=== PATIENT | female | born 1935 | race Caucasian/White ===

== ENCOUNTER 2024-10-14 11:15 | Inpatient (IN) | payer MEDICARE ==
[~2024-10-14] VITALS: Ht 149.9 cm; Wt 43.1 kg
[2024-10-14 11:18] VITALS: BP 148/66; TEMP 98.2
[2024-10-14 11:40] VITALS: BP 148/66; TEMP 98.2
[2024-10-14 14:45] VITALS: BP 158/58; TEMP 98; O2SAT 99
[2024-10-14] MEDS ORDERED: REMEDY ESSENTIAL ZINC PASTE 113 GM TOP PRN (15:30)
[2024-10-14] MEDS ORDERED: MAGN400O6 PO (15:54)
[2024-10-14] MEDS ORDERED: PANT40TA2 PO ×2 (15:54→16:01)
[2024-10-14] MEDS ORDERED: ENOX40DI SUBCUT (15:54)
[2024-10-14] MEDS ORDERED: PREG50CA PO (15:54)
[2024-10-14] MEDS ORDERED: METH100V6 PO (15:54)
[2024-10-14] MEDS ORDERED: ACET325C7 PO (15:54)
[2024-10-14] MEDS ORDERED: HYDR-3974 PO (15:54)
[2024-10-14] MEDS ORDERED: PANT20TA2 PO (15:54)
[2024-10-14] MEDS ORDERED: ZOLP5TAB2 PO (15:56)
[2024-10-14] MEDS ORDERED: ESCI-9 PO (16:01)
[2024-10-14] MEDS ORDERED: METO-356 PO (16:01)
[2024-10-14] MEDS ORDERED: ROSU20TA2 PO (16:01)
[2024-10-14] MEDS: ESCITALOPRAM OXALATE 10 MG TABLET PO SCH (16:15)
[2024-10-14] MEDS: HYDROCODONE/APAP 10-325 MG TABLET PO PRN (17:18)
[2024-10-14] MEDS: METOPROLOL SUCCINATE XL 25 MG TAB.SR.24H PO SCH (17:18)
[2024-10-14] MEDS: METHOCARBAMOL 500 MG TABLET PO SCH (17:19)
[2024-10-14] MEDS: PREGABALIN 25 MG CAPSULE PO SCH (17:50)
[2024-10-14] MEDS: ENOXAPARIN SODIUM 30 MG/0.3 ML DISP.SYRIN SQ SCH (20:36)
[2024-10-14] MEDS: ZOLPIDEM 5 MG TABLET PO PRN (20:37)
[2024-10-14 21:20] VITALS: BP 165/59; TEMP 98.2; O2SAT 95
[2024-10-15] MEDS: PANTOPRAZOLE SODIUM 40 MG TABLET.DR PO SCH (06:06)
[2024-10-15 06:57] VITALS: BP 159/64; TEMP 97.8
[2024-10-15] MEDS: ATORVASTATIN 40 MG TABLET PO SCH (08:55)
[2024-10-15 09:09] VITALS: BP 147/42; TEMP 97.8; O2SAT 95
[2024-10-15] MEDS ORDERED: MORP2SYR7 IV (10:54)
[2024-10-15] MEDS ORDERED: ONDA4SYR IV (10:55)
[2024-10-15] MEDS ORDERED: PETR113P TP (10:56)
[2024-10-15] MEDS ORDERED: LEVO50TA8 PO (16:35)
[2024-10-15] MEDS ORDERED: METH-806 PO (16:37)
[2024-10-15 18:07] VITALS: BP 143/53; TEMP 98.4; O2SAT 90
[2024-10-15 22:45] VITALS: BP 149/52; TEMP 97.7; O2SAT 91
[2024-10-16] MEDS: LEVOTHYROXINE SODIUM 50 MCG TABLET PO SCH (06:09)
[2024-10-16 06:53] VITALS: BP 167/62; TEMP 97.6; O2SAT 91
[2024-10-16 07:49] VITALS: TEMP 97.9
[2024-10-16] MEDS: HYDROCODONE/APAP 5-325MG TABLET PO PRN (08:51)
[2024-10-16] MEDS: MAGNESIUM HYDROXIDE 30 ML LIQUID UDC PO PRN (08:51)
[2024-10-16 16:09] VITALS: TEMP 97.8
[2024-10-16 21:09] VITALS: BP 147/50; TEMP 98; O2SAT 91
[2024-10-17 06:41] VITALS: BP 142/46; TEMP 98; O2SAT 96
[2024-10-17 08:00] VITALS: TEMP 98.2
[2024-10-17 08:16] LABS: BASOPHILS # (AUTO) 0.1 K/UL (0.0-0.2); BASOPHILS % (AUTO) 0.5 % (0.0-2.0); EOSINOPHILS # (AUTO) 0.1 K/uL (0.0-0.7); EOSINOPHILS % (AUTO) 0.7 % (0.0-7.0); HEMOGLOBIN 11.2 g/dL (10.9-14.3); LYMPHOCYTES # (AUTO) 1.6 K/uL (0.8-4.8); LYMPHOCYTES % (AUTO) 12.4 % (20.5-51.5); MEAN CORPUSCULAR HEMOGLOBIN 31.3 uug (24.7-32.8); MEAN CORPUSCULAR HGB CONC 34 g/dL (32.3-35.6); MEAN CORPUSCULAR VOLUME 92.4 fL (75.5-95.3); MONOCYTES # (AUTO) 1.2 K/uL (0.1-1.30); MONOCYTES % (AUTO) 9.7 % (0.0-11.0); NEUTROPHILS # (AUTO) 9.7 K/uL (1.8-8.9); NEUTROPHILS % (AUTO) 76.7 % (38.5-71.5); PLATELET COUNT (AUTO) 251 K/uL (179-408); RED BLOOD CELL COUNT(AUTO) 3.57 MIL/uL (3.63-4.92); RED CELL DISTRIBUTION WIDTH 14.5 % (12.3-17.7); WHITE BLOOD COUNT (AUTO) 12.7 K/uL (3.8-11.8)
[2024-10-17 08:31] LABS: DIFFERENTIAL COMMENT 1
[2024-10-17 08:36] LABS: THYROID STIMULATING HORMONE 6.359 mIU/mL (0.358-3.740)
[2024-10-17 08:45] LABS: IRON, SERUM 21 ug/dL (50-175)
[2024-10-17 09:01] LABS: ALANINE AMINOTRANSFERASE 36 U/L (14-59); ALBUMIN 2.6 g/dL (3.4-5.0); ALKALINE PHOSPHATASE 67 U/L (50-136); ASPARTATE AMINOTRANSFERASE 35 U/L (15-37); BILIRUBIN,TOTAL 0.5 mg/dL (0.2-1.0); CALCIUM 8.8 mg/dL (8.5-10.1); CARBON DIOXIDE 30 mmol/L (21-32); CHLORIDE 102 mmol/L (98-107); CHOLESTEROL 149 mg/dL (<200); CREATININE 0.9 mg/dL (0.6-1.3); GLUCOSE 105 mg/dL (74-106); HDL CHOLESTEROL 63 mg/dL (40-60); MAGNESIUM 2.4 mg/dL (1.8-2.4); POTASSIUM 4.7 mmol/L (3.5-5.1); SODIUM SERUM 138 mmol/L (136-145); TOTAL PROTEIN, SERUM 5.9 g/dL (6.4-8.2); TRIGLYCERIDES 109 MG/DL (30-150); UREA NITROGEN, BLOOD 22 mg/dL (7-18)
[2024-10-17 16:22] VITALS: TEMP 98
[2024-10-17 21:14] VITALS: BP 135/47; TEMP 98.2; O2SAT 94
[2024-10-17] MEDS: BISACODYL 10 MG SUPP.RECT RC PRN (21:47)
[2024-10-18 06:45] VITALS: BP 107/53; TEMP 97.5; O2SAT 90
[2024-10-18 07:33] VITALS: BP 152/54; TEMP 97.4; O2SAT 93
[2024-10-18 15:10] VITALS: BP 116/42; TEMP 97.7; O2SAT 93
[2024-10-18 20:12] VITALS: BP 151/50; TEMP 98.1; O2SAT 93
[2024-10-18] MEDS: CALCIUM CARBONATE 500 MG TAB.CHEW PO PRN (21:27)
[2024-10-19 05:23] VITALS: BP 158/49; TEMP 98; O2SAT 94
[2024-10-19 08:00] VITALS: BP 136/39; TEMP 97.8; O2SAT 99
[2024-10-19 16:12] VITALS: BP 117/40; TEMP 97.7; O2SAT 97
[2024-10-19 20:53] VITALS: BP 126/63; TEMP 98.2; O2SAT 95
[2024-10-20 07:00] VITALS: BP 122/68; TEMP 97.6; O2SAT 97
[2024-10-20 08:19] LABS: BASOPHILS # (AUTO) 0.1 K/UL (0.0-0.2); BASOPHILS % (AUTO) 0.8 % (0.0-2.0); EOSINOPHILS # (AUTO) 0.3 K/uL (0.0-0.7); EOSINOPHILS % (AUTO) 4.8 % (0.0-7.0); HEMATOCRIT 31.3 % (31.2-41.9); HEMOGLOBIN 10.8 g/dL (10.9-14.3); LYMPHOCYTES % (AUTO) 30.2 % (20.5-51.5); MEAN CORPUSCULAR HEMOGLOBIN 31.9 uug (24.7-32.8); MEAN CORPUSCULAR HGB CONC 34 g/dL (32.3-35.6); MEAN CORPUSCULAR VOLUME 92.7 fL (75.5-95.3); MONOCYTES # (AUTO) 0.7 K/uL (0.1-1.30); MONOCYTES % (AUTO) 11.3 % (0.0-11.0); NEUTROPHILS # (AUTO) 3.4 K/uL (1.8-8.9); NEUTROPHILS % (AUTO) 52.9 % (38.5-71.5); PLATELET COUNT (AUTO) 288 K/uL (179-408); RED BLOOD CELL COUNT(AUTO) 3.37 MIL/uL (3.63-4.92); RED CELL DISTRIBUTION WIDTH 14.6 % (12.3-17.7); WHITE BLOOD COUNT (AUTO) 6.5 K/uL (3.8-11.8)
[2024-10-20 08:22] LABS: DIFFERENTIAL COMMENT 1
[2024-10-20 08:29] LABS: ALANINE AMINOTRANSFERASE 21 U/L (14-59); ALBUMIN 2.5 g/dL (3.4-5.0); ALKALINE PHOSPHATASE 74 U/L (50-136); ASPARTATE AMINOTRANSFERASE 13 U/L (15-37); BILIRUBIN,TOTAL 0.4 mg/dL (0.2-1.0); CALCIUM 9.1 mg/dL (8.5-10.1); CARBON DIOXIDE 33 mmol/L (21-32); CHLORIDE 100 mmol/L (98-107); GLUCOSE 91 mg/dL (74-106); MAGNESIUM 2.2 mg/dL (1.8-2.4); PHOSPHOROUS 4.4 mg/dL (2.5-4.9); POTASSIUM 4.5 mmol/L (3.5-5.1); SODIUM SERUM 136 mmol/L (136-145); TOTAL PROTEIN, SERUM 5.7 g/dL (6.4-8.2); UREA NITROGEN, BLOOD 22 mg/dL (7-18)
[2024-10-20 08:35] VITALS: TEMP 97.6
[2024-10-20 16:00] VITALS: TEMP 97.6
[2024-10-20 20:10] VITALS: BP 130/49; TEMP 98.2; O2SAT 96
[2024-10-21 06:31] VITALS: BP 125/56; TEMP 98.3; O2SAT 96
[2024-10-21 08:00] VITALS: TEMP 97.3
[2024-10-21] MEDS: CHOLECALCIFEROL 1,000 UNIT TABLET PO SCH (08:29)
[2024-10-21] MEDS: ACETAMINOPHEN 325 MG TABLET PO PRN (11:40)
[2024-10-21 16:10] VITALS: TEMP 97.3
[2024-10-21 20:25] VITALS: BP 121/48; TEMP 97.8; O2SAT 96
[2024-10-22] MEDS: OXYCODONE/APAP 5-325 MG TABLET PO PRN (03:06)
[2024-10-22 06:41] VITALS: BP 125/62; TEMP 97.4; O2SAT 97
[2024-10-22 08:00] VITALS: BP 113/38; TEMP 97; O2SAT 96
[2024-10-22 12:21] VITALS: O2SAT 96
[2024-10-22 15:58] VITALS: BP 160/97; TEMP 97.2; O2SAT 98
[2024-10-22 22:32] VITALS: BP 110/38; TEMP 98.1; O2SAT 92
[2024-10-22 23:42] VITALS: O2SAT 32
[2024-10-23 07:04] VITALS: BP 142/50; TEMP 97.4; O2SAT 100
[2024-10-23 08:00] VITALS: BP 134/44; TEMP 97.6; O2SAT 100
[2024-10-23 08:44] LABS: BASOPHILS # (AUTO) 0.1 K/UL (0.0-0.2); BASOPHILS % (AUTO) 0.8 % (0.0-2.0); EOSINOPHILS # (AUTO) 0.3 K/uL (0.0-0.7); EOSINOPHILS % (AUTO) 3.6 % (0.0-7.0); HEMATOCRIT 32.3 % (31.2-41.9); HEMOGLOBIN 11.1 g/dL (10.9-14.3); LYMPHOCYTES # (AUTO) 1.9 K/uL (0.8-4.8); LYMPHOCYTES % (AUTO) 25.4 % (20.5-51.5); MEAN CORPUSCULAR HEMOGLOBIN 31.7 uug (24.7-32.8); MEAN CORPUSCULAR HGB CONC 34 g/dL (32.3-35.6); MEAN CORPUSCULAR VOLUME 92.7 fL (75.5-95.3); MONOCYTES # (AUTO) 0.8 K/uL (0.1-1.30); MONOCYTES % (AUTO) 11.2 % (0.0-11.0); NEUTROPHILS # (AUTO) 4.3 K/uL (1.8-8.9); PLATELET COUNT (AUTO) 327 K/uL (179-408); RED BLOOD CELL COUNT(AUTO) 3.49 MIL/uL (3.63-4.92); RED CELL DISTRIBUTION WIDTH 14.5 % (12.3-17.7); WHITE BLOOD COUNT (AUTO) 7.3 K/uL (3.8-11.8)
[2024-10-23 08:45] LABS: CALCIUM 9.2 mg/dL (8.5-10.1); CARBON DIOXIDE 32 mmol/L (21-32); CHLORIDE 105 mmol/L (98-107); CREATININE 1.1 mg/dL (0.6-1.3); GLUCOSE 88 mg/dL (74-106); POTASSIUM 4.5 mmol/L (3.5-5.1); SODIUM SERUM 140 mmol/L (136-145); UREA NITROGEN, BLOOD 24 mg/dL (7-18)
[2024-10-23 08:51] LABS: DIFFERENTIAL COMMENT 1
[2024-10-23] MEDS: OXYCODONE/APAP 5-325 MG TABLET PO PRN (09:16)
[2024-10-23 16:00] VITALS: BP 125/43; TEMP 97.6; O2SAT 100
[2024-10-23 22:46] VITALS: BP 109/40; TEMP 97.8; O2SAT 97
[2024-10-23 23:00] VITALS: O2SAT 98
[2024-10-24 07:15] VITALS: BP 134/47; TEMP 97.7; O2SAT 94
[2024-10-24 08:00] VITALS: BP 142/47; TEMP 98.2; O2SAT 97
[2024-10-25] MEDS ORDERED: Oxycodone/Apap 5-325 Mg PO (16:50)
[2024-10-27] MEDS ORDERED: Oxycodone/Apap 5-325 Mg PO (17:13)
== END 2024-10-24 15:15 | disposition home health service (06) | DRG 559 ==
PROVIDERS: ADMIT Physical Medicine & Rehabilitation Pain Medicine; ATTEND Physical Medicine & Rehabilitation
DX: S22.089D Unspecified fracture of T11-T12 vertebra, subsequent encounter for fracture with routine healing (principal); N17.0 Acute kidney failure with tubular necrosis; D68.59 Other primary thrombophilia; E44.0 Moderate protein-calorie malnutrition; S32.019D Unspecified fracture of first lumbar vertebra, subsequent encounter for fracture with routine healing; Z91.81 History of falling; W01.0XXD Fall on same level from slipping, tripping and stumbling without subsequent striking against object, subsequent encounter; E03.9 Hypothyroidism, unspecified; F41.9 Anxiety disorder, unspecified; F32.A Depression, unspecified; G89.29 Other chronic pain; Z74.09 Other reduced mobility; I13.10 Hypertensive heart and chronic kidney disease without heart failure, with stage 1 through stage 4 chronic kidney disease, or unspecified chronic kidney disease; M19.011 Primary osteoarthritis, right shoulder; N18.9 Chronic kidney disease, unspecified; D64.9 Anemia, unspecified; E78.5 Hyperlipidemia, unspecified; M51.369 Other intervertebral disc degeneration, lumbar region without mention of lumbar back pain or lower extremity pain; M25.411 Effusion, right shoulder; M75.51 Bursitis of right shoulder; R91.1 Solitary pulmonary nodule; R26.2 Difficulty in walking, not elsewhere classified
CPT/HCPCS: 36415; 71045; 82652; 83550; 83735; 84100; 84443; 85025; 97535-GO-CO; J1650

== ENCOUNTER 2024-12-16 13:37 | Inpatient (IN) | payer MEDICARE, OTHER ==
[~2024-12-16] VITALS: Ht 152.4 cm; Wt 41.7 kg
[~2024-12-16 13:37] MED LIST: ACET325C7 PO; ENOX40DI SUBCUT; ESCI-9 PO; HYDR-3974 PO; LEVO50TA8 PO; MAGN400O6 PO; METH-806 PO; METO-356 PO; MORP2SYR7 IV; ONDA4SYR IV; Oxycodone/Apap 5-325 Mg PO; PANT40TA2 PO; PETR113P TP; PREG50CA PO; ROSU20TA2 PO; ZOLP5TAB2 PO
[2024-12-16 14:25] VITALS: BP 178/61; TEMP 97.7
[2024-12-16 14:44] VITALS: BP 178/61; TEMP 97.7
[2024-12-16 20:00] VITALS: BP 144/64; TEMP 97.8; O2SAT 96
[2024-12-16] MEDS ORDERED: REMEDY ESSENTIAL ZINC PASTE 113 GM TOP PRN (23:15)
[2024-12-16] MEDS ORDERED: CLOP75TA33 PO (23:54)
[2024-12-16] MEDS ORDERED: BACL5TAB PO (23:54)
[2024-12-16] MEDS ORDERED: ATOR80TA PO (23:54)
[2024-12-16] MEDS ORDERED: ACET650S13 RC (23:54)
[2024-12-16] MEDS ORDERED: ASPI81TA31 PO (23:54)
[2024-12-16] MEDS ORDERED: MAG-89 PO (23:54)
[2024-12-17 05:22] VITALS: BP 141/67; TEMP 98.1; O2SAT 95
[2024-12-17 07:18] LABS: PLATELET COUNT (AUTO) 245 K/uL (179-408); RED BLOOD CELL COUNT(AUTO) 3.63 MIL/uL (3.63-4.92); RED CELL DISTRIBUTION WIDTH 14.3 % (12.3-17.7); WHITE BLOOD COUNT (AUTO) 7.8 K/uL (3.8-11.8)
[2024-12-17 07:31] LABS: CREATININE 0.8 mg/dL (0.6-1.3); SODIUM SERUM 137 mmol/L (136-145); UREA NITROGEN, BLOOD 13 mg/dL (7-18)
[2024-12-17 08:00] VITALS: BP 165/76; TEMP 98.1; O2SAT 96
[2024-12-17] MEDS ORDERED: OXYCODONE PO PRN (08:45)
[2024-12-17] MEDS ORDERED: APAP PO PRN (08:45)
[2024-12-17] MEDS ORDERED: PREGABALIN 50 MG CAPSULE PO SCH (09:00)
[2024-12-17] MEDS: ASPIRIN EC 81 MG TABLET.DR PO SCH (09:51)
[2024-12-17] MEDS: ESCITALOPRAM OXALATE 10 MG TABLET PO SCH (09:52)
[2024-12-17] MEDS: PREGABALIN 25 MG CAPSULE PO SCH (09:53)
[2024-12-17] MEDS: CLOPIDOGREL 75 MG TABLET PO SCH (09:53)
[2024-12-17] MEDS: BACLOFEN 10 MG TABLET PO SCH (09:53)
[2024-12-17] MEDS ORDERED: ATOR40TA PO (12:25)
[2024-12-17] MEDS ORDERED: BACLOFEN 10 MG TABLET PO SCH (13:00)
[2024-12-17 16:27] VITALS: BP 166/57; TEMP 97.9; O2SAT 95
[2024-12-17 19:55] VITALS: BP 123/59; TEMP 98.3; O2SAT 95
[2024-12-17] MEDS: ATORVASTATIN 40 MG TABLET PO SCH (20:46)
[2024-12-17] MEDS: METOPROLOL SUCCINATE XL 25 MG TAB.SR.24H PO SCH (20:50)
[2024-12-17] MEDS ORDERED: ZOLPIDEM 5 MG TABLET PO SCH (21:00)
[2024-12-18] MEDS: OXYCODONE/APAP 5-325 MG TABLET PO PRN (03:20)
[2024-12-18] MEDS: PANTOPRAZOLE SODIUM 40 MG TABLET.DR PO SCH (06:58)
[2024-12-18] MEDS: LEVOTHYROXINE SODIUM 50 MCG TABLET PO SCH (06:58)
[2024-12-18 07:12] VITALS: BP 165/62; TEMP 97.9
[2024-12-18 10:37] LABS: *BILIRUBIN,URIN NEGATIVE (NEGATIVE); *BLOOD, URINE 2+ (NEGATIVE); *CLARITY,URINE CLEAR (CLEAR); *COLOR,URINE YELLOW (YELLOW); *KETONES,URINE NEGATIVE (NEGATIVE); *PROTEIN,URINE 2+ (NEGATIVE); *UROBILINOGEN,URINE 0.2 E.U./dl (NORMAL); LEUKOCYTE ESTERASE ,URINE NEGATIVE (NEGATIVE); NITRITE, URINE NEGATIVE (NEGATIVE); UGLUCOSE NEGATIVE (NEGATIVE)
[2024-12-18 11:08] LABS: SQUAMOUS EPITHELIAL CELL,UR MANY /HPF (NONE SEEN)
[2024-12-18] MEDS ORDERED: CEFTRIAXONE 1 G in IV DEXTROSE 5% 50 ML IV SCH (15:00)
[2024-12-18 20:14] VITALS: BP 161/58; TEMP 97.9; O2SAT 97
[2024-12-19 05:12] VITALS: BP 148/64; TEMP 97.8; O2SAT 96
[2024-12-19 08:00] VITALS: BP 155/61; TEMP 97.4; O2SAT 95
[2024-12-19] MEDS: ENSURE ENLIVE (VAN) 240 ML LIQUID PO SCH (08:58)
[2024-12-19 18:19] VITALS: BP 139/53; TEMP 98.1; O2SAT 97
[2024-12-19 20:00] VITALS: BP 137/55; TEMP 97.8; O2SAT 96
[2024-12-19] MEDS: METOPROLOL SUCCINATE XL 25 MG TAB.SR.24H PO SCH (21:20)
[2024-12-19] MEDS: ZOLPIDEM 5 MG TABLET PO PRN (23:29)
[2024-12-20 00:32] VITALS: O2SAT 97
[2024-12-20 07:16] VITALS: BP 158/55; TEMP 97.9
[2024-12-20 07:48] VITALS: BP 152/50; TEMP 97.6; O2SAT 100
[2024-12-20] MEDS: ACETAMINOPHEN 325 MG TABLET PO PRN (13:31)
[2024-12-20 13:34] VITALS: O2SAT 97
[2024-12-20 16:02] VITALS: BP 124/40; TEMP 97.6; O2SAT 97
[2024-12-20] MEDS: MAGNESIUM HYDROXIDE 30 ML LIQUID UDC PO PRN (16:29)
[2024-12-20 20:09] VITALS: BP 119/43; TEMP 97.8; O2SAT 97
[2024-12-21 06:43] VITALS: BP 163/51; TEMP 97.9; O2SAT 100
[2024-12-21 07:32] LABS: PLATELET COUNT (AUTO) 258 K/uL (179-408); RED BLOOD CELL COUNT(AUTO) 3.79 MIL/uL (3.63-4.92); RED CELL DISTRIBUTION WIDTH 14.4 % (12.3-17.7); WHITE BLOOD COUNT (AUTO) 8.3 K/uL (3.8-11.8)
[2024-12-21 07:40] LABS: ASPARTATE AMINOTRANSFERASE 15 U/L (15-37); CREATININE 1.0 mg/dL (0.6-1.3); SODIUM SERUM 138 mmol/L (136-145); TOTAL PROTEIN, SERUM 5.6 g/dL (6.4-8.2); UREA NITROGEN, BLOOD 26 mg/dL (7-18)
[2024-12-21 08:00] VITALS: BP 124/45; TEMP 97.4; O2SAT 99
[2024-12-21] MEDS: MAG HYDROX/AL HYDROX/SIMETH 30 ML LIQUID UDC PO PRN (14:40)
[2024-12-21 18:04] VITALS: BP 146/53; TEMP 97.8; O2SAT 98
[2024-12-21 19:57] VITALS: BP 144/48; TEMP 97.7; O2SAT 98
[2024-12-21] MEDS: ATORVASTATIN 20 MG TABLET PO SCH (21:05)
[2024-12-21] MEDS: AMLODIPINE 5 MG TABLET PO SCH (21:05)
[2024-12-21 22:10] VITALS: O2SAT 97
[2024-12-22 05:57] VITALS: BP 168/64; TEMP 97.7; O2SAT 99
[2024-12-22 08:00] VITALS: BP 149/62; TEMP 97.8; O2SAT 99
[2024-12-22] MEDS: METOPROLOL SUCCINATE XL 25 MG TAB.SR.24H PO SCH (09:26)
[2024-12-22 10:25] VITALS: O2SAT 98
[2024-12-22 16:00] VITALS: BP 118/52; TEMP 98.5; O2SAT 99
[2024-12-22] MEDS: ENSURE ENLIVE (VAN) 240 ML LIQUID PO SCH (17:08)
[2024-12-22 20:00] VITALS: BP 130/65; TEMP 97.8; O2SAT 97
[2024-12-22 21:53] VITALS: O2SAT 97
[2024-12-23 06:00] VITALS: BP 156/62; TEMP 97.4; O2SAT 99
[2024-12-23 09:00] VITALS: BP 122/46; TEMP 97.5; O2SAT 97
[2024-12-23 14:30] VITALS: O2SAT 97
[2024-12-23 15:15] VITALS: BP 121/48; TEMP 98; O2SAT 95
[2024-12-23 20:30] VITALS: BP 120/52; TEMP 97.9; O2SAT 99
[2024-12-24 00:15] VITALS: O2SAT 97
[2024-12-24 05:56] VITALS: BP 150/64; TEMP 98.1; O2SAT 95; O2SAT 99
[2024-12-24 08:43] VITALS: BP 130/40; TEMP 97.8; O2SAT 98
[2024-12-24] MEDS: HYDROCODONE/APAP 5-325MG TABLET PO PRN (10:43)
[2024-12-24] MEDS: SENNOSIDES 1 TABLET PO ONE (11:16)
[2024-12-24 13:49] VITALS: BP 119/48; TEMP 97.7; O2SAT 95
== END 2024-12-24 15:40 | disposition home health service (06) | DRG 69 ==
PROVIDERS: ADMIT Physical Medicine & Rehabilitation Pain Medicine; ATTEND Physical Medicine & Rehabilitation Pain Medicine
DX: G45.9 Transient cerebral ischemic attack, unspecified (principal); G93.41 Metabolic encephalopathy; D68.59 Other primary thrombophilia; F03.93 Unspecified dementia, unspecified severity, with mood disturbance; F03.94 Unspecified dementia, unspecified severity, with anxiety; G93.40 Encephalopathy, unspecified; M48.56XA Collapsed vertebra, not elsewhere classified, lumbar region, initial encounter for fracture; M48.54XA Collapsed vertebra, not elsewhere classified, thoracic region, initial encounter for fracture; N39.0 Urinary tract infection, site not specified; Z68.1 Body mass index [BMI] 19.9 or less, adult; Z87.440 Personal history of urinary (tract) infections; I10 Essential (primary) hypertension; E03.9 Hypothyroidism, unspecified; M19.011 Primary osteoarthritis, right shoulder; R53.1 Weakness; E78.5 Hyperlipidemia, unspecified; F32.A Depression, unspecified; G62.9 Polyneuropathy, unspecified; G89.29 Other chronic pain; M17.11 Unilateral primary osteoarthritis, right knee
CPT/HCPCS: 36415; 71045; 83735; 83921; 84100; 84443; 85025; 87086; 97535-GO-CO; A4663; J0696